=== PATIENT | male | born 1965 | race Asian ===

== ENCOUNTER 2016-10-19 15:26 | Emergency (ER) | payer MEDICAID ==
[~2016-10-19] VITALS: Ht 165.1 cm; Wt 81.6 kg
[~2016-10-19 15:26] MED LIST: ASPIR 8181 M1 PO; NORVASC10 MG PO; ORETIC25 MG PO; PREDNISONE20 MG PO; PREDNISONE50 M1 PO; PROAIR HFA0.09 MG/Ac IH; QVAR HFA M80 MCG/ACT INH; TOPROL XL50 MG PO; ZESTRIL30 MG PO; ZITHROMAX Z-PA250 MG PO
[2016-10-19 16:15] VITALS: BP 135/57
[2016-10-19] MEDS ORDERED: ALBUTEROL 0.083% 2.5 MG/3 ML NEBU INH ONE (16:25)
--- NOTE | 2016-10-19 16:34 | NUR ---
PT ASSISTED TO BED 7 AT THIS TIME.
[2016-10-19] MEDS ORDERED: methylPREDNISolone SS 125 MG in WATER STERILE 2 ML IM ONE (16:45)
--- NOTE | 2016-10-19 16:45 | NUR ---
RT at bedside for breathing treatment.
--- NOTE | 2016-10-19 16:47 | NUR ---
51/M presents to ED for evaluation of cough and cold x1 week. Pt noted with audible wheezing sounds and in mild distress. Patient noted with wheezing and diminished lung sounds. Hacking, non productive cough noted. Respirations 30/min with accessory muscle use. Patient is AOX4, speaking in full sentences. Pt denies any pain at this time. Pt skin hot to touch, disoloration noted to bilateral lower extremities. Patient placed on space and missile operations, pulse oximetry and blood pressure monitor. VSS.
[2016-10-19] MEDS ORDERED: methylPREDNISolone SS 125 MG in WATER STERILE 2 ML IV ONE (16:50)
--- NOTE | 2016-10-19 17:07 | NUR ---
Dr. Rivera at bedside.
[2016-10-19] MEDS ORDERED: ALBUTEROL SULFATE/IPRATROPIU 3 ML SOL IH ONE ×2 (17:15→18:05)
--- NOTE | 2016-10-19 17:15 | NUR ---
Caity at bedside to interview the patient. Per the PA student Sami Torres, patient indicated he had a pocketknife and wanted to kill people.
--- NOTE | 2016-10-19 17:16 | NUR ---
Respiratory therapist at bedside for second breathing treatment.
--- NOTE | 2016-10-19 17:24 | NUR ---
PT IMPROVING. RECEIVING BREATHING TREATMENT WELL.
[2016-10-19] MEDS ORDERED: PIPERACILLIN/TAZOBACTAM 3.375 GM in DEXTROSE 5% 50 ML IV ONE (17:35)
[2016-10-19] MEDS ORDERED: PIPERACILLIN/TAZOBACTAM 3.375 GM VIAL IV ONE (17:42)
--- NOTE | 2016-10-19 18:03 | NUR ---
Dr. Rivera re-evaluating patient at bedside.
--- NOTE | 2016-10-19 18:14 | NUR ---
RT at bedside for a third breathing treatment.
--- NOTE | 2016-10-19 18:36 | NUR ---
IV removed, catheter intact and site benign. Applied folded 4x4 gauze and tape to stop bleeding.
[2016-10-19 18:40] VITALS: BP 155/72
--- NOTE | 2016-10-19 18:40 | NUR ---
Chart checked and completed. The patient's care was reviewed and supervised by Girma Molina RN.
--- NOTE | 2016-10-19 18:40 | NUR ---
Patient discharged with v/s stable. Written and verbal after care instructions given and explained. Patient alert, oriented and verbalized understanding of instructions. Ambulatory with steady gait. All questions addressed prior to discharge. ID band removed. Patient advised to follow up with PMD. Rx of PREDNISONE,ALBUTEROL,MINIELITE COMPRESSOR NEB.,AUGMENTIN given. Patient educated on indication of medication including possible reaction and side effects. Opportunity to ask questions provided and answered.
== END 2016-10-19 18:40 | disposition home or self-care (01) ==
LOC: MED 15:26
DX: J45.901 Unspecified asthma with (acute) exacerbation (principal); J18.9 Pneumonia, unspecified organism; R19.7 Diarrhea, unspecified; Z86.73 Personal history of transient ischemic attack (TIA), and cerebral infarction without residual deficits; Z79.82 Long term (current) use of aspirin
CPT/HCPCS: 71010; 94640; 94664; 96365; 96375; 99284; J2543; J2930; J7030; J7060; J7613; J7620

== ENCOUNTER 2016-10-29 18:21 | Inpatient (IN) | payer MEDICAID ==
[~2016-10-29] VITALS: Ht 165.1 cm; Wt 86.2 kg
[2016-10-29 18:30] VITALS: BP 99/64
--- NOTE | 2016-10-29 21:23 | NUR ---
Patient to bed 02. Dr. Sanchez evaluating patient at bedside.
[2016-10-29] MEDS ORDERED: AZITHROMYCIN 500 MG in DEXTROSE 5% 250 ML IV ONE (21:25)
[2016-10-29] MEDS ORDERED: LEVOFLOXACIN 750 MG/D5W PREMIX 150 ML IV ONE (21:25)
[2016-10-29] MEDS ORDERED: ALBUTEROL 0.083% 2.5 MG/3 ML NEBU INH ONE (21:30)
--- NOTE | 2016-10-29 21:45 | NUR ---
51Y M BIB UNCLE C/O OF CONGESTION,SOB AND GENERALIZED WEAKNESS. NON PRODUCTIVE COUGH.
--- NOTE | 2016-10-29 21:57 | NUR ---
RT AT BEDSIDE.
[2016-10-29] MEDS ORDERED: AZITHROMYCIN 500 MG INJ VIAL IV ONE (22:05)
[2016-10-29] MEDS ORDERED: MORPHINE SULFATE 2 MG/ML SYR IVP PRN (22:10)
[2016-10-29] MEDS ORDERED: MORPHINE SULFATE 4 MG/ML SYR IVP PRN (22:10)
[2016-10-29] MEDS ORDERED: ONDANSETRON 4 MG/2 ML VIAL IVP PRN (22:10)
[2016-10-29] MEDS ORDERED: ENALAPRILAT 2.5 MG/2 ML VIAL IVP ONE (22:55)
[2016-10-29] MEDS ORDERED: PIPERACILLIN/TAZOBACTAM 2.25 GM in DEXTROSE 5% 50 ML IV SCH (23:00)
--- NOTE | 2016-10-29 23:15 | NUR ---
Patient will be admitted to care of DR SALINAS . Admited to TELEMETRY. Will go to room 123B. Belongings list completed. Report to ALON HENDRICKS.
--- NOTE | 2016-10-29 23:20 | NUR ---
ADMITTED THIS 51 YEAR OLD MALE FROM ER PER JEY WITH CC OF AND CONGESTION, AAOX4, ASSESSMENT DONE, WITH DIFFICULTY OF BREATHING WHEN TALKING, VITAL SIGNS TAKEN, TACHYPNEIC, PUT ON O2 2L/NC, SAT-95%, OCCASIONAL PRODUCTIVE COUGH NOTED, DENIES ANY CHEST PAIN, WITH ROUTINE AND PRN BREATHING TX ORDER, ORIENTED TO ROOM AND CALL LIGHT, IV LEVAQUIN PRESENTLY INFUSING, SAFETY MEASURES IN PLACE, CALL LIGHT WITHIN REACH.
[2016-10-29] MEDS: NACL 0.9% 1,000 ML IV SCH (23:53)
[2016-10-30] VITALS: BP 157/97
[2016-10-30] MEDS: PIPER/TAZO 3.375GM/D5W PREMIX 50 ML IV SCH ×4 (00:06→20:16)
[2016-10-30] MEDS: IPRATROPIUM 0.02% 0.5 MG/2.5 ML NEBU INH SCH ×2 (01:24→06:55)
[2016-10-30] MEDS: ALBUTEROL 0.083% 2.5 MG/3 ML NEBU INH PRN ×2 (01:24→06:55)
--- NOTE | 2016-10-30 01:30 | NUR ---
PT SITTING ON SIDE OF BED, WITH SOB NOTED, BREATHING TX GIVEN BY RT MAURO, MONITORED CLOSELY.
--- NOTE | 2016-10-30 02:10 | NUR ---
PT COMPLAINING OF LEG PAIN, OFFERED PAIN MEDICATION BUT REFUSED, PT SAID "I WILL JUST MASSAGE IT", ENCOURAGE TO CALL IF PAIN GETS WORST, MONITORED CLOSELY.
[2016-10-30 04:00] VITALS: BP 142/78
--- NOTE | 2016-10-30 04:00 | NUR ---
PT AWAKE SITTING ON BED WATCHING TV, VITAL SIGNS STABLE, STILL WITH OCCASIONAL COUGH, REFUSED SCD'S, RISK AND BENEFITS EXPLAINED, IVF INFUSING WELL, MONITORED CLOSELY.
[2016-10-30] MEDS ORDERED: PIPERACILLIN/TAZOBACTAM 3.375 GM VIAL IV ONE ×2 (04:55)
--- NOTE | 2016-10-30 05:10 | NUR ---
PT WITH PRODUCTIVE COUGH, OFFERED TO GET AN ORDER FOR COUGH MEDICATION BUT PT SAID "NO IT'S HENRIQUE, I'VE BEEN COUGHING FOR A WEEK AND TAKING ROBITUSSIN, I JUST NEED THIS PNEUMONIA TO BE RESOLVED AND GO HOME", DUE IV ANTIBIOTIC AND PO PREDNISONE ADMINISTERED, MONITORED CLOSELY.
[2016-10-30] MEDS ORDERED: predniSONE 20 MG TAB PO SCH (06:00)
--- NOTE | 2016-10-30 06:53 | NUR ---
AWAKE AND ALERT RESPONSIVE TO SPECIALTY MOLDER VERBAL COMMANDS PATIENT C/O OF NASAL DRYNESS WITH SUPPLEMENTAL OXYGEN USE POST HHN THERAPY ADDED HUMIDIFIER REVIEWED PATIENT STATUS WITH ALON/RN CURRENT RESPIRATORY MEDICATION ALON TO ADVISE/CALL DR. ANIBAL CHAVARRIA CHANGE HHN THERAPY FREQUENCY AND MEDICATION TO Q4 & PRN DUONEB ADD SOLUMEDROL IV 4O MG
--- NOTE | 2016-10-30 06:55 | NUR ---
PT SITTING ON SIDE OF BED, BREATHING TX BEING GIVEN BY RT FAHEEM, NO SIGNS OF DISTRESS.
[2016-10-30] MEDS ORDERED: guaiFENesin 20 MG/ML UDC PO PRN (07:35)
[2016-10-30] MEDS ORDERED: ALBUTEROL SULFATE/IPRATROPIU 3 ML SOL IH PRN (07:35)
--- NOTE | 2016-10-30 07:37 | NUR ---
DR CHAVARRIA PAGED AND CALLED BACK WITH NEW ORDERS, RUTHIE CAREY AND RT FAHEEM MADE AWARE OF NEW ORDERS.
--- NOTE | 2016-10-30 07:40 | NUR ---
RECEIVED REPORT FROM THE WOOD CRAFTSMAN NURSE AT BEDSIDE FOR CONTINUITY OF CARE. PATIENT IS AWAKE, ALERT, AND ORIENTED X4. IV ON THE RIGHT FOREARM INTACT AND PATENT. INITIAL ASSESSMENT DONE. SKIN INTACT. ON 2L 02 VIA NASAL CANNULA. COUGHING NOTED. NO S/S OF SOB OR OTHER DISTRESS. VITALS TAKEN AND WITHIN THE THE NORMAL LIMIT.DENIED ANY PAIN AT THIS TIME. SAFETY MEASURED CHECKED AND WILL CONTINUE TO MONITOR. CALL LIGHT WITHIN REACH.
[2016-10-30 08:00] VITALS: BP 111/68
[2016-10-30] MEDS ORDERED: ENOXAPARIN 40 MG/0.4 ML SYR SUBQ SCH (09:00)
[2016-10-30] MEDS ORDERED: predniSONE 20 MG TAB PO ONE (09:00)
--- NOTE | 2016-10-30 09:00 | NUR ---
DUE MEDS GIVEN. PATIENT TOLERATED WELL. PATIENT AMBULATE TO THE BATHROOM AND BED TO BED WITH NO ASSISTANCE. GAIT IS STABLE. CALL LIGHT WITHIN REACH.
[2016-10-30] MEDS: methylPREDNISolone SS 40 MG/ML VIAL IVP SCH ×3 (09:34→20:16)
[2016-10-30] MEDS: ENOXAPARIN 40 MG/0.4 ML SYR SUBQ SCH (09:35)
--- NOTE | 2016-10-30 10:57 | NUR ---
PATIENT RESTING IN BED. NO S/S OF DISTRESS. NO COMPLAINED OF ANY PAIN. CALL LIGHT WITHIN REACH.
[2016-10-30] MEDS: ALBUTEROL SULFATE/IPRATROPIU 3 ML SOL IH SCH ×4 (11:14→23:02)
[2016-10-30 12:00] VITALS: BP 122/62
--- NOTE | 2016-10-30 12:00 | NUR ---
VITALS TAKEN AND WITHIN THE NORMAL LIMIT. WILL CONTINUE TO MONITOR.
--- NOTE | 2016-10-30 13:00 | NUR ---
PATIENT RESTING. PATIENT'S COUGHING HAD SUBSIDE. PATIENT STATE HIS COUGHING IS BETTER. WILL CONTINUE TO MONITOR.
--- NOTE | 2016-10-30 14:00 | NUR ---
PATIENT ASLEEP NO S/S OF DISTRESS. CALL LIGHT WITHIN REACH.
[2016-10-30 16:00] VITALS: BP 159/95
--- NOTE | 2016-10-30 16:00 | NUR ---
VITALS TAKEN WITHIN THE NORMAL LIMIT. NO COMPLAINED OF ANY PAIN. PATIENT STATE THAT HIS COUGH IS MUCH BETTER. LESS CONGESTION. CALL LIGHT WITHIN REACH.
--- NOTE | 2016-10-30 17:00 | NUR ---
PATIENT SITTING AT THE SIDE OF BED WATCHING TV. DENIED ANY PAIN. NO S/S OF DISTRESS. CALL LIGHT WITHIN REACH.
--- NOTE | 2016-10-30 19:17 | NUR ---
REPORT GIVEN TO LACQUER PIN PRESS OPERATOR NURSE ALON RN FOR CONTINUITY OF CARE AT BEDSIDE. PATIENT IS IN STABLE CONDITION AND ALL NEED MET AT THIS TIME.
--- NOTE | 2016-10-30 19:20 | NUR ---
RECEIVED PT AWAKE SITTING ON SIDE OF BED PRESENTLY GETTING BREATHING TX FROM RT NJ, NO SIGNS OF DISTRESS, VITAL SIGNS STABLE, IVF INFUSING WELL, SCD'S IN PLACE, SAFETY MEASURES IN PLACE, CALL LIGHT WITHIN REACH.
[2016-10-30 20:00] VITALS: BP 147/76
--- NOTE | 2016-10-30 20:20 | NUR ---
DUE MEDICATIONS ADMINISTERED, SANDWICH PROVIDED PER REQUEST, ALL NEEDS ATTENDED.
--- NOTE | 2016-10-30 21:40 | NUR ---
PT AMBULATED TO BR AND VERBALIZED HAD WATERY STOOL SMALL AMOUNT, INSTRUCTED TO COLLECT STOOL FOR C-DIFF TEST THE NEXT TIME HE HAD A WATERY STOOL, VERBALIZED UNDERSTANDING, CONTAINER PROVIDED, MONITORED CLOSELY.
[2016-10-30] MEDS: NACL 0.9% 1,000 ML IV SCH (22:07)
[2016-10-31] VITALS: BP 136/80
--- NOTE | 2016-10-31 | NUR ---
PT AWAKE ON BED ON HIGH FOWLERS POSITION, VITAL SIGNS STABLE, NO SOB NOTED, OCCASIONAL PRODUCTIVE COUGH NOTED, IVF INFUSING WELL, CONTINUE TO MONITOR CLOSELY.
[2016-10-31] MEDS: ALBUTEROL SULFATE/IPRATROPIU 3 ML SOL IH SCH ×4 (03:36→14:04)
[2016-10-31 04:00] VITALS: BP 126/88
--- NOTE | 2016-10-31 04:00 | NUR ---
SLEEPING, EASILY AROUSABLE, VITAL SIGNS STABLE, NO SOB NOTED, IVF INFUSING WELL, MONITORED CLOSELY.
[2016-10-31] MEDS: methylPREDNISolone SS 40 MG/ML VIAL IVP SCH ×2 (04:19→12:05)
[2016-10-31] MEDS: PIPER/TAZO 3.375GM/D5W PREMIX 50 ML IV SCH ×2 (04:19→12:05)
[2016-10-31] MEDS: NACL 0.9% 1,000 ML IV SCH (04:19)
--- NOTE | 2016-10-31 05:30 | NUR ---
PT SLEEPING, NO SIGNS OF DISTRESS, IV ANTIBIOTIC INFUSING WELL.
--- NOTE | 2016-10-31 07:20 | NUR ---
PT SLEEPING, NO SIGNS OF DISTRESS, REPORT GIVEN TO RUTHIE AREVALO FOR CONTINUITY OF CARE.
--- NOTE | 2016-10-31 07:20 | NUR ---
RECEIVED PATIENT REPORT. PATIENT ASLEEP BUT EASILY AROUSABLE. NO S/S OF DISTRESS NOTED. PATIENT ON 2L O2. NO SOB NOTED. IV TO THE RIGHT FOREARM INTACT WITH IVF INFUSING WELL. SCD IN PLACE. PATIENT ON TELE MONITORING. BED LOWERED WITH CALL LIGHT WITHIN REACH. WILL CONTINUE TO MONITOR
[2016-10-31] MEDS ORDERED: ALBUTEROL SULFATE/IPRATROPIU 3 ML SOL IH PRN (07:26)
[2016-10-31 08:00] VITALS: BP 136/79
[2016-10-31] MEDS: ENOXAPARIN 40 MG/0.4 ML SYR SUBQ SCH (08:49)
[2016-10-31] MEDS ORDERED: LISINOPRIL 10 MG TAB PO SCH (09:00)
[2016-10-31] MEDS ORDERED: ECOTRIN 81 MG TABEC PO SCH (09:00)
[2016-10-31] MEDS ORDERED: METOPROLOL SUCCINATE 50 MG TABER PO SCH (09:00)
[2016-10-31] MEDS ORDERED: amLODIPine 5 MG TAB PO SCH (09:00)
--- NOTE | 2016-10-31 09:30 | NUR ---
PATIENT AMBULATED TO THE BATHROOM. PATIENT HAD A BM. STOOL BROWN, SOFT AND MODERATE IN AMOUNT
--- NOTE | 2016-10-31 09:55 | NUR ---
PATIENT WATCHING TELEVISION. NO S/S OF DISTRESS NOTED
--- NOTE | 2016-10-31 10:25 | NUR ---
PATIENT HAS BEEN SCREENED AND CATEGORIZED MODERATE NUTRITION RISK. PATIENT WILL BE SEEN WITHIN 3-5 DAYS OF ADMISSION. 11/01/16-11/03/[address]
--- NOTE | 2016-10-31 10:49 | NUR ---
PATIENT RECEIVING BREATHING TX. NO S/S OF DISTRESS NOTED
[2016-10-31 12:00] VITALS: BP 153/94
[2016-10-31] MEDS ORDERED: guaiFENesin/CODEINE 100/10MG 5 ML UDC PO PRN (12:00)
--- NOTE | 2016-10-31 12:15 | NUR ---
PATIENT SEEN BY DR CHAVARRIA. STATES THAT PATIENT IS OK FOR DISCHARGE IF O2 SATURATION IS 90% OR ABOVE ON ROOM AIR
[2016-10-31] MEDS ORDERED: LEVAQUIN750 MG PO (12:50)
[2016-10-31] MEDS ORDERED: PREDNISONE10 MG PO (12:52)
--- NOTE | 2016-10-31 12:55 | NUR ---
CM NOTE PER [facility] [employer] [facility]#[phone] OPTION 1, THEY DO NOT FOLLOW THE PATIENT AND REVIEWS SHOULD ONLY BE SENT TO THE MEDICAL GROUP. [facility]# [phone] PH# [phone]
[2016-10-31] MEDS ORDERED: ROBITUSSIN20 MG/1 ML PO (12:56)
--- NOTE | 2016-10-31 14:00 | NUR ---
PT O2 SATURATION 94% ON ROOM AIR. PATIENT INFORMED THAT HE IS STABLE FOR DISCHARGE. PATIENT STATES HE WILL BE PICKED UP AFTER DINNER
[2016-10-31 16:00] VITALS: BP 148/75
--- NOTE | 2016-10-31 18:38 | NUR ---
DISCHARGE INSTRUCTIONS AND DISCHARGE PRESCRIPTIONS GIVEN. PATIENT VERBALIZED UNDERSTANDING. IV LINE DISCONTINUED. TELE LEADS TAKEN OFF. PATIENT SIGNED ALL HIS DISCHARGE PAPERS. PATIENT WAITING FOR HIS RIDE TO GO HOME.
--- NOTE | 2016-10-31 19:37 | NUR ---
ENDORSED PATIENT TO THE NIGHT CHARGE NURSE. PATIENT IN STABLE CONDITION
== END 2016-10-31 20:30 | disposition home or self-care (01) | DRG 139 ==
LOC: MED 18:22 → MTU 22:14
PROVIDERS: ADMIT Hospitalist; ATTEND Hospitalist
DX: J18.9 Pneumonia, unspecified organism (principal); I12.9 Hypertensive chronic kidney disease with stage 1 through stage 4 chronic kidney disease, or unspecified chronic kidney disease; J45.909 Unspecified asthma, uncomplicated; N18.9 Chronic kidney disease, unspecified; R19.7 Diarrhea, unspecified; I25.10 Atherosclerotic heart disease of native coronary artery without angina pectoris; Z87.01 Personal history of pneumonia (recurrent); Z86.73 Personal history of transient ischemic attack (TIA), and cerebral infarction without residual deficits

== ENCOUNTER 2018-02-05 13:50 | Inpatient (IN) | payer MEDICAID ==
[~2018-02-05] VITALS: Ht 165.1 cm; Wt 91.6 kg
[~2018-02-05 13:50] MED LIST changes: +ALBU-136 IH; +AMLO10TA PO; +ASPI81EC98 PO; -ASPIR 8181 M1 PO; +BECL0.089 INH; +LEVO750T2 PO; +LISI30TA6 PO; +METO50TE2 PO; -NORVASC10 MG PO; +ORE25 PO; -ORETIC25 MG PO; +PRED10TA5 PO; -PREDNISONE20 MG PO; -PREDNISONE50 M1 PO; -PROAIR HFA0.09 MG/Ac IH; -QVAR HFA M80 MCG/ACT INH; +ROB PO; -TOPROL XL50 MG PO; -ZESTRIL30 MG PO; -ZITHROMAX Z-PA250 MG PO
--- NOTE | 2018-02-05 14:07 | NUR ---
PT AMBULATED TO ER BED 8 @ 13:58
--- NOTE | 2018-02-05 14:10 | NUR ---
PT. CAME INTO ED W/ C/O CHEST PAIN SINCE LAST NIGHT AT 11PM . PT. IS AAOX4 . RR EVEN AND UNLABORED, PT. C/O SOB, PT. HAS 10/10 SHARP PAIN IN CHEST THAT RADIATES TO R LOWER BACK. PT. DENIES N/V/D AT THIS TIME. PT. HAS HX OF STROKE AND HTN. SKIN IS WARM AND MOIST. PT. STATES " MY CHEST HURTS A LOT AND I FEEL OUT OF BREATHE. ER MD AWARE , WILL CONTINUE TO MONITOR.
--- NOTE | 2018-02-05 14:12 | NUR ---
REPORT GIVEN TO RUTHIE RODRIGUEZ
[2018-02-05] MEDS ORDERED: ASPIRIN 325 MG TAB ONE (14:42)
[2018-02-05] MEDS ORDERED: NITROGLYCERIN 2% 1 GM PKT TP ONE ×2 (14:43→15:05)
[2018-02-05] MEDS ORDERED: methylPREDNISolone SS 125 MG/2 ML VIAL IVP ONE (15:05)
[2018-02-05] MEDS ORDERED: IPRATROPIUM 0.02% 0.5 MG/2.5 ML NEBU INH ONE (15:05)
[2018-02-05] MEDS ORDERED: ALBUTEROL 0.083% 2.5 MG/3 ML NEBU INH ONE (15:05)
[2018-02-05] MEDS ORDERED: ASPIRIN 325 MG TAB PO ONE (15:05)
[2018-02-05 15:34] LABS: HEMATOCRIT 46.6 % (36-52); HEMOGLOBIN 15.3 g/dL (12.0-18.0); MEAN CORPUSCULAR HEMOGLOBIN 28 pg (27-31); MEAN CORPUSCULAR HGB CONC 33 g/dL (33-37); MEAN CORPUSCULAR VOLUME 85.6 fL (80-94); PLATELET COUNT (AUTO) 350 K/uL (140-450); RED BLOOD CELL COUNT(AUTO) 5.45 MIL/uL (4.20-6.10); RED CELL DISTRIBUTION WIDTH 14.5 % (11.6-13.7)
--- NOTE | 2018-02-05 15:46 | NUR ---
RT AT BEDSIDE
[2018-02-05 15:49] LABS: LYMPHOCYTES % (MANUAL) 6 % (20-46); MONOCYTES % (MANUAL) 9 % (5-12)
[2018-02-05 15:56] LABS: ALBUMIN 3.8 g/dL (3.4-5.0); ANION GAP 16.4 (8-16); CARBON DIOXIDE 25.5 mmol/L (21-32); CREATININE 2.3 mg/dL (0.7-1.3); MAGNESIUM 2.2 mg/dL (1.8-2.4); PHOSPHORUS 3.6 mg/dL (2.5-4.9); POTASSIUM 3.9 mmol/L (3.5-5.1); TOTAL BILIRUBIN 0.6 mg/dL (0.0-1.0)
[2018-02-05 16:05] LABS: PROTHROMBIN TIME 11.7 secs (10.8-13.4)
[2018-02-05] MEDS ORDERED: LEVOFLOXACIN 750 MG/D5W PREMIX 150 ML IV ONE (16:15)
[2018-02-05] MEDS ORDERED: hePARIN / DEXT 5% PREMIX 250 ML IV ONE (16:45)
[2018-02-05] MEDS ORDERED: HEPARIN PER PHARMACY MC PRN ×2 (16:45→21:30)
[2018-02-05] MEDS ORDERED: hePARIN / DEXT 5% PREMIX 250 ML IV SCH ×2 (16:50→21:30)
--- NOTE | 2018-02-05 17:18 | NUR ---
PT. RESTING COMFORTABLY IN BED, RR EVEN AND UNLABORED, BED IN LOWEST POSITION. WILL CONTINUE TO MONITOR.
[2018-02-05] MEDS ORDERED: HYDROcodone/APAP 5/325 MG 1 TAB TAB PO PRN (17:25)
[2018-02-05] MEDS ORDERED: ALBUTEROL 0.083% 2.5 MG/3 ML NEBU IH PRN (17:25)
[2018-02-05] MEDS ORDERED: LORazepam 2 MG/ML VIAL IVP PRN (17:25)
[2018-02-05] MEDS ORDERED: guaiFENesin 20 MG/ML UDC PO PRN (17:25)
[2018-02-05] MEDS ORDERED: ONDANSETRON 4 MG/2 ML VIAL IVP PRN (17:25)
[2018-02-05] MEDS ORDERED: MORPHINE SULFATE 4 MG/ML SYR IVP PRN (17:25)
--- NOTE | 2018-02-05 19:05 | NUR ---
Patient will be admitted to care of DR. BURGOS . Admited to TELE FLOOR . Will go to room 122B. Belongings list completed. Report to RUTHIE KYLE .
--- NOTE | 2018-02-05 19:30 | NUR ---
PATIENT ADMITTED TO THE UNIT FROM ER. PATIENT IS AWAKE, ALERT AND ORIENTED. AMBULATORY. NO SIGNS AND SYMPTOMS OF DISTRESS NOTED. BREATHING EVEN AND UNLABORED. IV SITE NOTED ON LEFT AC, AND RIGHT FOREARM. PLAN OF CARE DISCUSSED WITH PATIENT. PATIENT VERBALIZED UNDERSTANDING. BED IN LOWEST POSITION, SIDE RAILS UP AND CALL LIGHT WITHIN REACH. WILL CONTINUE TO MONITOR.
--- NOTE | 2018-02-05 20:00 | NUR ---
PT SEEN BY DR. JACOME
[2018-02-05] MEDS ORDERED: DOCUSATE SODIUM 100 MG GELCAP PO PRN (20:05)
[2018-02-05] MEDS: IPRATROPIUM 0.02% 0.5 MG/2.5 ML NEBU IH SCH (20:11)
[2018-02-05] MEDS: ALBUTEROL 0.083% 2.5 MG/3 ML NEBU IH SCH (20:11)
--- NOTE | 2018-02-05 20:22 | NUR ---
HHNTX GIVEN. PT SATS ON ROOM AIR IS 94%. PLACED PT ON 2LNC DUE TO LOW HR OF 47. SPUTUM CUP GIVEN TO PT. ENCOURAGED PT TO GIVE SPUTUM SAMPLE. UNABLE TO GIVE AT THIS TIME
[2018-02-05 20:30] VITALS: BP 167/85
[2018-02-05 21:27] LABS: BARBITURATE, URINE NEG. ng/ml (NEG <=200); BENZODIAZEPINE, URINE NEG. ng/mL (NEG <=200); CANNABINOID, URINE NEG. ng/mL (NEG <=50); COCAINE, URINE NEG. ng/mL (NEG <=300); OPIATE, URINE NEG. ng/mL (NEG <=2000); PHENCYCLIDINE SCREEN,URINE NEG. ng/mL (NEG <=25)
[2018-02-05] MEDS ORDERED: LEVOFLOXACIN 750 MG/D5W PREMIX 150 ML IV SCH (21:30)
[2018-02-05 21:38] LABS: CHOL/HDL RATIO 3.5 (1-4.5); FREE T4 (FREE THYROXINE) 1.07 ng/dL (0.76-1.46); THYROID STIMULATING HORMONE 0.72 uIU/mL (0.34-3.74)
[2018-02-05] MEDS ORDERED: NITROGLYCERIN 0.4 MG TAB SL PRN (21:45)
[2018-02-05] MEDS: ACETAMINOPHEN 325 MG TAB PO PRN (21:49)
[2018-02-05 21:55] LABS: BILIRUBIN,URINE NEGATIVE (NEGATIVE); BLOOD, URINE 2+ (NEGATIVE); COLOR,URINE YELLOW (YELLOW); LEUKOCYTE ESTERASE ,URINE TRACE (NEGATIVE); NITRITE, URINE NEGATIVE (NEGATIVE); UGLUCOSE NEGATIVE (NEGATIVE)
[2018-02-05] MEDS: NACL 0.9% 1,000 ML IV SCH (22:00)
[2018-02-05 22:19] LABS: APPEARANCE,URINE HAZY (CLEAR)
--- NOTE | 2018-02-05 22:35 | NUR ---
HEPARIN DRIP STARTED
[2018-02-05] MEDS: hePARIN / DEXT 5% PREMIX 250 ML IV SCH (22:39)
[2018-02-05 23:46] LABS: RBC,URINE 11-20 (MOD) /HPF (0-5); WBC,URINE TOO MANY TO COUNT /HPF (0-5)
[2018-02-06] VITALS: BP 154/78
[2018-02-06] MEDS: ALBUTEROL 0.083% 2.5 MG/3 ML NEBU IH SCH ×4 (01:19→19:11)
[2018-02-06] MEDS: IPRATROPIUM 0.02% 0.5 MG/2.5 ML NEBU IH SCH ×4 (01:19→19:10)
--- NOTE | 2018-02-06 02:00 | NUR ---
CHECKED ON PATIENT. PATIENT IS ASLEEP. NO SIGNS AND SYMPTOMS OF DISTRESS NOTED. BREATHING EVEN AND UNLABORED. WILL CONTINUE TO MONITOR.
[2018-02-06 04:00] VITALS: BP 132/85
[2018-02-06] MEDS: ACETAMINOPHEN 325 MG TAB PO PRN (04:39)
[2018-02-06 04:43] LABS: HEMATOCRIT 41.9 % (36-52); HEMOGLOBIN 13.6 g/dL (12.0-18.0); MEAN CORPUSCULAR HEMOGLOBIN 28 pg (27-31); MEAN CORPUSCULAR HGB CONC 33 g/dL (33-37); MEAN CORPUSCULAR VOLUME 85.3 fL (80-94); PLATELET COUNT (AUTO) 286 K/uL (140-450); RED BLOOD CELL COUNT(AUTO) 4.91 MIL/uL (4.20-6.10); WHITE BLOOD COUNT (AUTO) 20.9 K/uL (4.8-10.8)
[2018-02-06] MEDS ORDERED: methylPREDNISolone SS 40 MG/ML VIAL IVP SCH (05:00)
--- NOTE | 2018-02-06 05:57 | NUR ---
CALLED LAB TO CHECK PATIENT'S PTT. LAB SAID THAT PTT IS 37.8. WILL FOLLOW HEPARIN DRIP PROTOCOL ORDERED.
[2018-02-06 06:02] LABS: ANION GAP 16.1 (8-16); CARBON DIOXIDE 21.5 mmol/L (21-32); CREATININE 2.9 mg/dL (0.7-1.3); MAGNESIUM 2.4 mg/dL (1.8-2.4); POTASSIUM 3.6 mmol/L (3.5-5.1); TOTAL BILIRUBIN 0.4 mg/dL (0.0-1.0)
[2018-02-06] MEDS: hePARIN / DEXT 5% PREMIX 250 ML IV SCH ×3 (06:04→23:59)
--- NOTE | 2018-02-06 07:20 | NUR ---
PATIENT REPORT GIVEN TO MORNING NURSE AT BEDSIDE. PATIENT IS IN STABLE CONDITION
[2018-02-06] MEDS ORDERED: guaiFENesin 20 MG/ML UDC PO PRN (07:31)
--- NOTE | 2018-02-06 07:40 | NUR ---
PATIENT AWAKE, ALERT. RESPIRATION EVEN, UNLABOR ON 2L NC. SKIN DRY AND WARM. LUNGS SOUND CLEAR THROUGHOUT. BOWEL SOUND ACTIVE 4 QUADRANTS. DENIED CP, SOB, N/V AT THIS TIME. NO DISTRESS NOTED. IV PATENT AND INTACT. PLAN OF CARE WAS DISCUSSED WITH PATIENT. BED AT LOW POSITION, SIDE RAILS UP. CALL LIGHT WITHIN REACH.
[2018-02-06 08:00] VITALS: BP 152/82
[2018-02-06 08:46] LABS: LYMPHOCYTES % (MANUAL) 3 % (20-46); MONOCYTES % (MANUAL) 1 % (5-12)
--- NOTE | 2018-02-06 08:56 | NUR ---
PATIENT HAS BEEN SCREENED AND CATEGORIZED MODERATE NUTRITION RISK. PATIENT WILL BE SEEN WITHIN 3-5 DAYS OF ADMISSION. 02/08/18 02/10/[address]
[2018-02-06] MEDS ORDERED: ASPIRIN 81 MG TAB.CHEW PO SCH (09:00)
[2018-02-06] MEDS: ATORVASTATIN 20 MG TAB PO SCH (09:20)
[2018-02-06] MEDS: amLODIPine 5 MG TAB PO SCH (09:20)
[2018-02-06] MEDS: FAMOTIDINE 20 MG TAB PO SCH (09:21)
[2018-02-06] MEDS: FUROSEMIDE 40 MG/4 ML VIAL IVP SCH (09:21)
[2018-02-06] MEDS: ECOTRIN 81 MG TABEC PO SCH (09:21)
[2018-02-06] MEDS: LACTOBACILLUS RHAMNOSUS GG 1 EACH CAP PO SCH (09:21)
[2018-02-06] MEDS: LORATADINE 10 MG TAB PO SCH (09:22)
--- NOTE | 2018-02-06 11:50 | NUR ---
PATIENT AWAKE, ALERT. RESPIRATION EVEN, UNLABOR ON 2L NC. DENIED CP, SOB. VS IS STABLE. NO DISTRESS NOTED. CALL LIGHT WITHIN REACH
[2018-02-06 12:00] VITALS: BP 153/84
[2018-02-06] MEDS: metroNIDAZOLE 500 MG/NS PREMIX 100 ML IV SCH ×2 (12:16→20:53)
--- NOTE | 2018-02-06 12:20 | NUR ---
RECEIVED A CALL FROM KAYLA FROM [facility]. FAXED INITIAL REVIEW TO [phone] PHONE [phone].
--- NOTE | 2018-02-06 13:49 | NUR ---
RECEIVED REPORT FROM [facility] AT BEDSIDE FOR CONTINUITY OF CARE. PATIENT ALERT AND ABLE TO MAKE NEEDS KNOWN. NO ACUTE DISTRESS NOTED. SITTING IN BED WATCHING TV. HEPARIN DRIP CONT RUNNING AT 10ML/HR. TO RFA 20G. AND NS RUNNING @30ML/HR TO LAC 20G. PATIENT DENIES PAIN AT THIS TIME. CALL LIGHT WITHIN REACH. WILL CONT TO MONITOR.
--- NOTE | 2018-02-06 13:49 | NUR ---
ENDORSEMENT GIVEN TO HARITHA HENDRICKS FOR CONTINUITY OF CARE. PATIENT IS STABLE AT THIS TIME
[2018-02-06 16:00] VITALS: BP 165/93
[2018-02-06 16:08] LABS: CREATINE KINASE MB 2.5 ng/mL (0-3.6)
[2018-02-06] MEDS: MONTELUKAST SODIUM 10 MG TAB PO SCH (16:21)
--- NOTE | 2018-02-06 16:41 | NUR ---
ADMINISTERED 2000UNIT BOLUS OF HEPARIN INDICATED FOR PTT OF 36.4AND INCREASED HEPARIN DRIP TO 1150UNITS/HR. PATIENT TOLERATED WELL. WILL CONT TO MONITOR.
[2018-02-06] MEDS ORDERED: LEVOFLOXACIN 250 MG/D5 PREMIX 50 ML IV SCH (17:00)
--- NOTE | 2018-02-06 19:10 | NUR ---
ENDORSED REPORT TO YARD CLEANER NURSE AT BEDSIDE FOR CONTINUITY OF CARE. PATIENT STABLE.
--- NOTE | 2018-02-06 19:11 | NUR ---
PATIENT REPORT RECEIVED FROM MORNING NURSE AT BEDSIDE. PATIENT IS AWAKE, ALERT AND ORIENTED. AMBULATORY. NO SIGNS AND SYMPTOMS OF DISTRESS NOTED. BREATHING EVEN AND UNLABORED. IV SITE NOTED ON LEFT AC, IVF INFUSING WELL. ANOTHER IV SITE NOTED ON RIGHT FOREARM, WITH HEPARIN DRIP INFUSING AT 1150 UNITS PER HOUR. PLAN OF CARE DISCUSSED WITH PATIENT. PATIENT VERBALIZED UNDERSTANDING. BED IN LOWEST POSITION, SIDE RAILS UP AND CALL LIGHT WITHIN REACH. WILL CONTINUE TO MONITOR.
[2018-02-06 20:00] VITALS: BP 123/61
[2018-02-06] MEDS: NACL 0.9% 1,000 ML IV SCH (20:05)
[2018-02-06] MEDS ORDERED: CYCLOBENZAPRINE 10 MG TAB PO SCH ×2 (21:00)
--- NOTE | 2018-02-06 21:00 | NUR ---
MEDICATION EDUCATION GIVEN. PATIENT VERBALIZED UNDERSTANDING. MEDICATION ADMINISTERED ORDERED.
[2018-02-07] VITALS: BP 143/83
--- NOTE | 2018-02-07 | NUR ---
PATIENT'S PTT 39. HEPARIN PROTOCOL FOLLOWED. 2000 UNITS BOLUS GIVEN AND HEPARIN DRIP INCREASED TO 1300 UNITS PER HOUR
[2018-02-07] MEDS: IPRATROPIUM 0.02% 0.5 MG/2.5 ML NEBU IH SCH ×4 (00:09→20:17)
[2018-02-07] MEDS: ALBUTEROL 0.083% 2.5 MG/3 ML NEBU IH SCH ×4 (00:09→20:17)
--- NOTE | 2018-02-07 02:33 | NUR ---
IV SITE ON LEFT AC INFILTRATED. IV DISCONTINUED. IV CANNULA INTACT. NEW IV SITE INSERTED ON RIGHT AC, 20 GAUGE. PATIENT TOLERATED WELL
[2018-02-07 05:00] VITALS: BP 135/70
--- NOTE | 2018-02-07 05:00 | NUR ---
CHECKED ON PATIENT. PATIENT IS ASLEEP. NO SIGNS AND SYMPTOMS OF DISTRESS NOTED. BREATHING EVEN AND UNLABORED. WILL CONTINUE TO MONITOR.
[2018-02-07] MEDS: metroNIDAZOLE 500 MG/NS PREMIX 100 ML IV SCH (05:06)
[2018-02-07 06:28] LABS: HEMOGLOBIN 13.7 g/dL (12.0-18.0); MEAN CORPUSCULAR HEMOGLOBIN 28 pg (27-31); MEAN CORPUSCULAR HGB CONC 32 g/dL (33-37); MEAN CORPUSCULAR VOLUME 86.4 fL (80-94); PLATELET COUNT (AUTO) 300 K/uL (140-450); RED BLOOD CELL COUNT(AUTO) 4.97 MIL/uL (4.20-6.10); RED CELL DISTRIBUTION WIDTH 14.5 % (11.6-13.7); WHITE BLOOD COUNT (AUTO) 27.7 K/uL (4.8-10.8)
[2018-02-07 06:45] LABS: ANION GAP 14.5 (8-16); CARBON DIOXIDE 24.3 mmol/L (21-32); CREATININE 2.7 mg/dL (0.7-1.3); POTASSIUM 3.8 mmol/L (3.5-5.1)
[2018-02-07 06:58] LABS: MAGNESIUM 2.3 mg/dL (1.8-2.4); PHOSPHORUS 5.1 mg/dL (2.5-4.9)
[2018-02-07 07:14] LABS: LYMPHOCYTES % (MANUAL) 4 % (20-46); MONOCYTES % (MANUAL) 11 % (5-12)
--- NOTE | 2018-02-07 07:16 | NUR ---
PATIENT REPORT GIVEN TO MORNING NURSE AT BEDSIDE. PATIENT IS IN STABLE CONDITION
--- NOTE | 2018-02-07 07:20 | NUR ---
REPORT RECEIVED FROM [facility] NURSE, PT AAOX4, UP AMBULATING TO BATHROOM WITH STEADY GAIT, DENIES CHEST PAIN, DENIES SOB, PLAN OF CARE REVIEWED, ALL SAFETY MEASURES IN PLACE, HEPARIN DRIP ON GOING TO RIGHT FA IV, SITE CLEAR, RATE AT 1300 UNITS/HR, NO S/S OF BLEEDING NOTED, WILL CONTINUE TO MONITOR.
--- NOTE | 2018-02-07 07:49 | NUR ---
PT UNABLE TO PRODUCE SPUTUM AT THIS TIME
[2018-02-07 08:00] VITALS: BP 164/100
--- NOTE | 2018-02-07 08:00 | NUR ---
PT'S BP 164/101, PT STATES "IT'S ALWAYS HIGH IN 180'S 190'S, i JUST NEED MY AM MEDS", WILL MEDICATE SCHEDULED.
[2018-02-07] MEDS: FUROSEMIDE 40 MG/4 ML VIAL IVP SCH (08:07)
[2018-02-07] MEDS: LACTOBACILLUS RHAMNOSUS GG 1 EACH CAP PO SCH (08:08)
[2018-02-07] MEDS: FAMOTIDINE 20 MG TAB PO SCH (08:08)
[2018-02-07] MEDS: amLODIPine 5 MG TAB PO SCH (08:08)
[2018-02-07] MEDS: ATORVASTATIN 20 MG TAB PO SCH (08:08)
[2018-02-07] MEDS: CYCLOBENZAPRINE 10 MG TAB PO SCH ×3 (08:09→16:38)
[2018-02-07] MEDS: LORATADINE 10 MG TAB PO SCH (08:09)
[2018-02-07] MEDS: ECOTRIN 81 MG TABEC PO SCH (08:09)
--- NOTE | 2018-02-07 08:14 | NUR ---
AM MEDS GIVEN, PT ALEXANDER PO WELL, SPEAKS CLEARLY IN NAD, SITTING UP TO EAT BREAKFAST, PT DENIES BACK PAIN, STATES CHEST PAIN IS VERY MINIMAL, DENIES SOB, WILL CONTINUE TO MONITOR
[2018-02-07 08:23] LABS: T4 (THYROXINE) 8.7 ug/dL (4.5-12.0)
[2018-02-07] MEDS: PIPER/TAZO 2.25GM/D5W PREMIX 50 ML IV SCH ×2 (11:50→18:55)
--- NOTE | 2018-02-07 11:59 | NUR ---
DR SALINAS AT BEDSIDE, FIRST DOSE OF ZOSYN STARTED, PT AAOX4, ASKING FOR EXTRA SANDWICH FOR LUNCH, WILL NOTIFY KITCHEN
[2018-02-07 12:00] VITALS: BP 119/72
--- NOTE | 2018-02-07 12:30 | NUR ---
TELE STRIP SHOWS A-FIB HR 94, CURRENTLY MONITOR SHOWS HR 115-120 WITH AFIB, PT SITTING UP EATING LUNCH, DENIES CHEST PAIN OR DISCOMFORT, DR MADDOX NOTIFIED OF NEW CARDIAC RHYTHM.
--- NOTE | 2018-02-07 12:42 | NUR ---
RT NOTIFIED OF EKG ORDER.
[2018-02-07] MEDS ORDERED: PIPER/TAZO 3.375GM/D5W PREMIX 50 ML IV SCH (13:00)
[2018-02-07] MEDS ORDERED: METOPROLOL 25 MG TAB PO SCH (13:30)
--- NOTE | 2018-02-07 13:32 | NUR ---
clinical review faxed to [facility] at [phone]
[2018-02-07] MEDS: hePARIN / DEXT 5% PREMIX 250 ML IV SCH ×2 (13:41→16:39)
--- NOTE | 2018-02-07 13:42 | NUR ---
PTT RESULTED 39.9, HEPARIN BOLUS 2000 UNITS GIVEN AND CONTINUOUS RATE INCREASED TO 1450 UNITS PER HOUR PER PROTOCOL. NO S/S OF BLEEDING, WILL CONTINUE TO MONITOR.
--- NOTE | 2018-02-07 14:49 | NUR ---
DR Harris TOLLIVER AT BEDSIDE FOR EVAL, DR TOLLIVER MADE AWARE OF NEW ONSET AFIB.
--- NOTE | 2018-02-07 14:55 | NUR ---
PER DR Kings TOLLIVER, HEPARIN CAN BE DISCONTINUED SOON PT IS STARTED ON ELIQUIS.
[2018-02-07 16:00] VITALS: BP 108/78
--- NOTE | 2018-02-07 16:05 | NUR ---
PT SITTING UP IN BED IN NAD, RESP EVEN UNLABORED, DENIES CHEST PAIN OR DISCOMFORT, VSS, WILL CONTINUE TO MONITOR.
[2018-02-07] MEDS: methylPREDNISolone SS 125 MG/2 ML VIAL IVP SCH ×2 (16:37→20:36)
[2018-02-07] MEDS: MONTELUKAST SODIUM 10 MG TAB PO SCH (16:38)
[2018-02-07] MEDS: CALCIUM ACETATE 667 MG TAB PO SCH (16:38)
--- NOTE | 2018-02-07 19:29 | NUR ---
REPORT GIVEN TO CECELIA HENDRICKS, PT IN STABLE CONDITION
--- NOTE | 2018-02-07 19:30 | NUR ---
RECEIVED BEDSIDE REPORT FROM DAY SHIFT NURSE DIEGO RN, PT STABLE, NO DISTRESS NOTED, IV TO R FA 20G RUNNING HEPARIN DRIP @ 14.5ML/HR, INFUSING WELL AND IV TO RAC 20G RUNNING NS @ 60ML/HR, INFUSING WELL, PT ON ROOM AIR, NO SOB, PT RESTING ON BED, WATCHING TV, DENIES ANY PAIN AT THIS MOMENT, INITIAL ASSESSMENT DONE, ALL SAFETY PRECAUTION MET, WILL CONTINUE TO MONITOR.
[2018-02-07 20:00] VITALS: BP 122/81
[2018-02-07] MEDS: NACL 0.9% 1,000 ML IV SCH (20:36)
[2018-02-07] MEDS: METOPROLOL 25 MG TAB PO SCH (20:37)
[2018-02-07] MEDS: APIXABAN 2.5 MG TAB PO SCH (20:41)
--- NOTE | 2018-02-07 20:41 | NUR ---
DUE MEDICATION ADMINISTERED, PT TOLERATED WELL, HEPARIN DRIP D/C PER MD ORDER TO D/C AFTER APIXABAN GIVEN TO PT. PT STABLE, NO DISTRESS NOTED, CALL LIGHT WITHIN REACH, WILL CONTINUE TO MONITOR.
[2018-02-07] MEDS ORDERED: BISMUTH SUBSALICYLATE 15 ML UDBTL PO PRN (23:40)
--- NOTE | 2018-02-07 23:40 | NUR ---
PT STATED HAVING DIARRHEA AND WANTED SOME PEPTOBISMOL, CALLED DR. POTTER REGARDING PT CONCERN, STATED HE WILL PUT IN THE ORDERS. WILL CONTINUE WITH ORDERS.
[2018-02-08] VITALS: BP 136/96
[2018-02-08] MEDS: PIPER/TAZO 2.25GM/D5W PREMIX 50 ML IV SCH ×5 (00:25→23:51)
--- NOTE | 2018-02-08 00:25 | NUR ---
NOTIFIED BONE PROCESS OPERATOR REGARDING PEPTO BISMOL NOT AVAILABLE IN UNIT, BONE PROCESS OPERATOR WAS NOT ABLE TO OBTAIN MEDICATION. EXPLAINED TO PT, PT STATED UNDERSTANDING, AND STATED IT IS OK, HE DOES NOT FEEL LIKE GOING TO RESTROOM AGAIN. PT STABLE, NO DISTRESS NOTED, CALL LIGHT WITHIN REACH, WILL CONTINUE TO MONITOR.
[2018-02-08] MEDS: ALBUTEROL 0.083% 2.5 MG/3 ML NEBU IH SCH ×4 (01:00→20:10)
[2018-02-08] MEDS: IPRATROPIUM 0.02% 0.5 MG/2.5 ML NEBU IH SCH ×4 (01:00→20:10)
--- NOTE | 2018-02-08 03:01 | NUR ---
CHECKED ON PT, PT SLEEPING, NO DISTRESS NOTED, CALL LIGHT WITHIN REACH, WILL CONTINUE TO MONITOR.
--- NOTE | 2018-02-08 03:44 | NUR ---
CHECKED ON PT, PT SLEEPING, NO DISTRESS NOTED, CALL LIGHT WITHIN REACH, WILL CONTINUE TO MONITOR.
[2018-02-08 04:00] VITALS: BP 136/92
[2018-02-08] MEDS: methylPREDNISolone SS 125 MG/2 ML VIAL IVP SCH (05:12)
--- NOTE | 2018-02-08 05:13 | NUR ---
DUE MEDICATION ADMINISTERED, PT TOLERATED WELL, NO DISTRESS NOTED, CALL LIGHT WITHIN REACH, WILL CONTINUE TO MONITOR.
--- NOTE | 2018-02-08 07:29 | NUR ---
ENDORSED PT TO DAY SHIFT NURSE SITAL RN, PT STABLE, NO DISTRESS NOTED, CALL LIGHT WITHIN REACH.
--- NOTE | 2018-02-08 07:30 | NUR ---
RECEIVED REPORT FROM PM NURSE AT BEDSIDE FOR CONTINUITY OF CARE. PT SITTING ON HIS BED. AOX4. INTRODUCED SELF AND UPDATED BOARD. CALL LIGHT WITHIN REACH OF PT. WILL CONTINUE TO MONITOR PT.
[2018-02-08 08:00] VITALS: BP 138/103
[2018-02-08] MEDS: amLODIPine 5 MG TAB PO SCH (08:35)
[2018-02-08] MEDS: LORATADINE 10 MG TAB PO SCH (08:35)
[2018-02-08] MEDS: FAMOTIDINE 20 MG TAB PO SCH (08:35)
[2018-02-08] MEDS: CYCLOBENZAPRINE 10 MG TAB PO SCH ×3 (08:36→18:44)
[2018-02-08] MEDS: APIXABAN 2.5 MG TAB PO SCH ×2 (08:36→21:21)
[2018-02-08] MEDS: ECOTRIN 81 MG TABEC PO SCH (08:37)
[2018-02-08] MEDS: CALCIUM ACETATE 667 MG TAB PO SCH (08:37)
[2018-02-08] MEDS: ATORVASTATIN 20 MG TAB PO SCH (08:37)
[2018-02-08] MEDS: METOPROLOL 25 MG TAB PO SCH ×2 (08:38→21:15)
[2018-02-08] MEDS: LACTOBACILLUS RHAMNOSUS GG 1 EACH CAP PO SCH (08:45)
--- NOTE | 2018-02-08 09:30 | NUR ---
ADMINISTERED MEDICATION ORDERED. PT SITTING ON HIS BED. NO SIGN OF DISTRESS. PT DENIES PAIN AT THIS TIME. PT TOLERATED MEDICATION WELL. ALL SAFETY MEASURE IN PLACE. AT BEDSIDE. WILL CONTINUE TO MONITOR PT.
--- NOTE | 2018-02-08 11:30 | NUR ---
BS NOTED 109. NO INSULIN COVERAGE NEEDED AT THIS POINT. PT STABLE . VS NOTED. NO SIGN OF DISTRESS NOTED. ALL SAFETY MEASURE IN PLACE. AT THE BEDSIDE. WILL CONTINUE TO MONITOR PT.
[2018-02-08] MEDS: NACL 0.9% 1,000 ML IV SCH (11:42)
[2018-02-08 12:00] VITALS: BP 137/90
--- NOTE | 2018-02-08 15:41 | NUR ---
clinical review faxed to [facility] at [phone]
[2018-02-08 16:00] VITALS: BP 123/99
[2018-02-08] MEDS: MONTELUKAST SODIUM 10 MG TAB PO SCH (17:12)
[2018-02-08 17:47] LABS: ANION GAP 14.3 (8-16); CARBON DIOXIDE 26.7 mmol/L (21-32); CREATININE 2.3 mg/dL (0.7-1.3)
[2018-02-08 18:02] LABS: BASOPHILS % (AUTO) 0.2 % (0.0-2.0); HEMATOCRIT 43.5 % (36-52); HEMOGLOBIN 13.9 g/dL (12.0-18.0); LYMPHOCYTES % (AUTO) 5.2 % (20.5-51.1); MEAN CORPUSCULAR HEMOGLOBIN 28 pg (27-31); MEAN CORPUSCULAR HGB CONC 32 g/dL (33-37); MEAN CORPUSCULAR VOLUME 86.2 fL (80-94); MONOCYTES # (AUTO) 0.8 K/uL (0.8-1.0); MONOCYTES % (AUTO) 4.3 % (1.7-9.3); NEUTROPHILS # (AUTO) 17.6 K/uL (1.8-7.7); NEUTROPHILS % (AUTO) 90.3 % (42.2-75.2); PLATELET COUNT (AUTO) 336 K/uL (140-450); RED BLOOD CELL COUNT(AUTO) 5.05 MIL/uL (4.20-6.10); RED CELL DISTRIBUTION WIDTH 15.1 % (11.6-13.7); WHITE BLOOD COUNT (AUTO) 19.5 K/uL (4.8-10.8)
--- NOTE | 2018-02-08 19:10 | NUR ---
ENDORSED PT TO PM NURSE. PT STABLE AT THIS TIME.
--- NOTE | 2018-02-08 19:11 | NUR ---
RECEIVED BEDSIDE REPORT FROM DAY SHIFT NURSE JULESAL RN, PT WALKING AROUND IN UNIT, NO DISTRESS NOTED, IV TO R FA 22G RUNNING NS @ 60ML/HR INFUSING WELL, INTACT PATENT, PT ON ROOM AIR NO SOB, PT TOLERATING AMBULATING AROUND THE UNIT WELL, STATED HAVING NO PAIN AT THIS MOMENT, INITIAL ASSESSMENT DONE, ALL SAFETY PRECAUTION MET, WILL CONTINUE TO MONITOR.
--- NOTE | 2018-02-08 19:55 | NUR ---
PT UNCLE AT BEDSIDE, STATED WANTED TO TALK TO THE DR., INFORMED DR. TARIQ DR TO SEE PT.
[2018-02-08 20:00] VITALS: BP 129/86
[2018-02-08] MEDS ORDERED: APIXABAN 2.5 MG TAB PO SCH (21:00)
[2018-02-08] MEDS: methylPREDNISolone SS 40 MG/ML VIAL IVP SCH (21:15)
--- NOTE | 2018-02-08 21:15 | NUR ---
DUE MEDICATION ADMINISTERED, PT TOLERATED WELL, NO DISTRESS NOTED, CALL LIGHT WITHIN REACH, WILL CONTINUE TO MONITOR.
--- NOTE | 2018-02-08 23:51 | NUR ---
DUE MEDICATION ADMINISTERED, PT TOLERATED WELL, V/S TAKEN, WNL, PT STABLE, NO DISTRESS NOTED, CALL LIGHT WITHIN REACH, WILL CONTINUE TO MONITOR.
[2018-02-09] VITALS: BP 134/85
[2018-02-09] MEDS: IPRATROPIUM 0.02% 0.5 MG/2.5 ML NEBU IH SCH ×4 (01:09→19:00)
[2018-02-09] MEDS: ALBUTEROL 0.083% 2.5 MG/3 ML NEBU IH SCH ×4 (01:10→19:00)
--- NOTE | 2018-02-09 02:10 | NUR ---
CHECKED ON PT, PT SLEEPING, NO DISTRESS NOTED, CALL LIGHT WITHIN REACH, WILL CONTINUE TO MONITOR.
[2018-02-09 04:00] VITALS: BP 132/89
--- NOTE | 2018-02-09 04:10 | NUR ---
PT SLEEPING, NO DISTRESS NOTED, EASY TO AWAKE, V/S TAKEN, WNL, CALL LIGHT WITHIN REACH, WILL CONTINUE TO MONITOR.
[2018-02-09] MEDS: NACL 0.9% 1,000 ML IV SCH (05:18)
[2018-02-09] MEDS: PIPER/TAZO 2.25GM/D5W PREMIX 50 ML IV SCH ×2 (05:31→12:30)
[2018-02-09 06:55] LABS: HEMATOCRIT 43.7 % (36-52); LYMPHOCYTES # (AUTO) 1.1 K/uL (2.0-11.5); LYMPHOCYTES % (AUTO) 5.6 % (20.5-51.1); MEAN CORPUSCULAR HEMOGLOBIN 28 pg (27-31); MEAN CORPUSCULAR HGB CONC 32 g/dL (33-37); MEAN CORPUSCULAR VOLUME 86.3 fL (80-94); MONOCYTES # (AUTO) 0.5 K/uL (0.8-1.0); MONOCYTES % (AUTO) 2.8 % (1.7-9.3); NEUTROPHILS # (AUTO) 17.7 K/uL (1.8-7.7); NEUTROPHILS % (AUTO) 91.6 % (42.2-75.2); PLATELET COUNT (AUTO) 337 K/uL (140-450); RED BLOOD CELL COUNT(AUTO) 5.06 MIL/uL (4.20-6.10); RED CELL DISTRIBUTION WIDTH 14.9 % (11.6-13.7); WHITE BLOOD COUNT (AUTO) 19.4 K/uL (4.8-10.8)
--- NOTE | 2018-02-09 07:05 | NUR ---
ENDORSED PT TO DAY SHIFT NURSE SITAL RN, PT STABLE, NO DISTRESS NOTED, CALL LIGHT WITHIN REACH.
[2018-02-09 07:22] LABS: CARBON DIOXIDE 25.1 mmol/L (21-32); CREATININE 2.2 mg/dL (0.7-1.3); POTASSIUM 4.1 mmol/L (3.5-5.1)
[2018-02-09 07:28] LABS: MAGNESIUM 1.9 mg/dL (1.8-2.4); PHOSPHORUS 4.2 mg/dL (2.5-4.9)
[2018-02-09 08:00] VITALS: BP 144/92
[2018-02-09] MEDS: methylPREDNISolone SS 40 MG/ML VIAL IVP SCH (09:30)
[2018-02-09] MEDS: amLODIPine 5 MG TAB PO SCH (09:31)
[2018-02-09] MEDS: LACTOBACILLUS RHAMNOSUS GG 1 EACH CAP PO SCH (09:31)
[2018-02-09] MEDS: ATORVASTATIN 20 MG TAB PO SCH (09:31)
[2018-02-09] MEDS: LORATADINE 10 MG TAB PO SCH (09:32)
[2018-02-09] MEDS: CYCLOBENZAPRINE 10 MG TAB PO SCH (09:32)
[2018-02-09] MEDS: FAMOTIDINE 20 MG TAB PO SCH (09:32)
[2018-02-09] MEDS: ECOTRIN 81 MG TABEC PO SCH (09:32)
[2018-02-09] MEDS: METOPROLOL 25 MG TAB PO SCH (09:34)
[2018-02-09] MEDS: APIXABAN 2.5 MG TAB PO SCH (09:35)
[2018-02-09] MEDS: CALCIUM ACETATE 667 MG TAB PO SCH (09:53)
[2018-02-09 12:00] VITALS: BP 147/92
--- NOTE | 2018-02-09 12:04 | NUR ---
SPOKE WITH KAYLA FROM [facility] AND INFORMED HER THAT PATIENT WAS GOING HOME TO DAY ON PO LEVAQUIN FOR 5 DAYS. FAXED PROGRESS NOTE FROM DR. Kings TOLLIVER AND CONSULT FROM DR SALINAS AND DR. GARCIAS TO HER AT [phone] PHONE [phone].
[2018-02-09] MEDS ORDERED: APIX2.5 PO (14:47)
[2018-02-09] MEDS ORDERED: ATOR20TA40 PO (14:47)
[2018-02-09] MEDS ORDERED: LEVO750T2 PO (15:41)
--- NOTE | 2018-02-09 19:00 | NUR ---
PT ALREADY DISCHARGED. PAPER SIGNED AND THE PACKET GIVEN. ALL BELONGINGS ARE HANDED TO PT. PT WAITING ON RIDE. SECURITY BROUGHT KNIFE THAT BELONGS TO PT. GIVEN TO PM NURSE RIOS. TOP BE GIVEN OUTSIDE THE HOSPITAL BUILDING. PT SHOWERING AT THIS TIME.
--- NOTE | 2018-02-09 19:00 | NUR ---
PATIENT NOT ON BED WHEN ENDORSING THE PATIENT. PATIENT WAS IN THE SHOWER ROOM PER AM NURSE. PATIENT READY TO BE D/C . DISCHARGE PROCESS WAS JUST PER AM NURSE JUST WAITING FOR THE RELATIVE FOR THE RIDE. KEEP THE KNIFE UNTIL PATIENT OUT OF THE BUILDING.
--- NOTE | 2018-02-09 21:10 | NUR ---
PATIENT WAS DISCHARGE BY CN VIA WHEELCHAIR WITH ALL PERSONAL BELONGINGS AND KNIFE GIVEN WHEN OUT OF THE BUILDING. PATIENT LEFT IN STABLE CONDITION VIA PRIVATE CAR.
== END 2018-02-09 18:00 | disposition home or self-care (01) | DRG 720 ==
LOC: MED 13:50 → MTU 17:54
PROVIDERS: ADMIT General Practice; ATTEND General Practice
DX: A41.9 Sepsis, unspecified organism (principal); N17.0 Acute kidney failure with tubular necrosis; I21.4 Non-ST elevation (NSTEMI) myocardial infarction; I50.43 Acute on chronic combined systolic (congestive) and diastolic (congestive) heart failure; J44.1 Chronic obstructive pulmonary disease with (acute) exacerbation; J45.901 Unspecified asthma with (acute) exacerbation; I42.9 Cardiomyopathy, unspecified; I69.354 Hemiplegia and hemiparesis following cerebral infarction affecting left non-dominant side; N39.0 Urinary tract infection, site not specified; N18.9 Chronic kidney disease, unspecified; I13.0 Hypertensive heart and chronic kidney disease with heart failure and stage 1 through stage 4 chronic kidney disease, or unspecified chronic kidney disease; I25.10 Atherosclerotic heart disease of native coronary artery without angina pectoris; E83.39 Other disorders of phosphorus metabolism; R74.8 Abnormal levels of other serum enzymes; Z95.5 Presence of coronary angioplasty implant and graft; Z87.891 Personal history of nicotine dependence; Z79.899 Other long term (current) drug therapy; Z82.49 Family history of ischemic heart disease and other diseases of the circulatory system; Z81.8 Family history of other mental and behavioral disorders
CPT/HCPCS: 36415; 36600; 71045; 76770; 80048; 80053; 80305; 81001; 82150; 82550; 82553; 82803; 83036; 83605; 83690; 83735; 83880; 84100; 84436; 84439; 84443; 84479; 84484; 85025; 85610; 85730; 87040; 87081; 87086; 93005; 93925; 93970; 94640; 96365; 96366; 96375; 99285; J1644; J1940; J1956; J2543; J2920; J2930; J3490; J7030; J7613; J7644; Q0092